=== PATIENT | male | born 1990 ===

== ENCOUNTER 2025-08-08 19:19 | Emergency (ER) | payer BC, SELFPAY ==
[2025-08-08] VITALS (17 sets, daily range): BP systolic 105–149; BP diastolic 68–91; PULSE 75; RESP 20; TEMP 36.5; O2SAT 97–100
--- NOTE | ~2025-08-08 | CT_ITS ---
CT brain wo con HISTORY:SINGLETARY x 1 week, no hx COMPARISON: None. TECHNIQUE: Axial images were obtained of the head without intravenous contrast. FINDINGS: No acute intracranial hemorrhage, mass effect or midline shift. No extra-axial fluid collections. The calvarium is intact. Mucosal thickening of the maxillary sinuses bilaterally. Remaining visualized paranasal sinuses and mastoid air cells are clear. IMPRESSION: No acute intracranial hemorrhage or extra axial fluid collections. All CT scans at this facility are performed using low dose modulation techniques as appropriate to perform exam including the following: automated exposure control; use of iterative reconstruction technique; adjustment of the mA and/or kV according to patient size (this includes techniques or standardized protocols for targeted exams where dose is matched to indication/reason for exam). Reviewed, dictated and finalized at location S. IMPRESSION: No acute intracranial hemorrhage or extra axial fluid collections. All CT scans at this facility are performed using low dose modulation techniqu es as appropriate to perform exam including the following: automated exposure c ontrol; use of iterative reconstruction technique; adjustment of the mA and/or kV according to patient size (this includes techniques or standardized protocol s for targeted exams where dose is matched to indication/reason for exam).
--- NOTE | 2025-08-08 21:48 | ED_ITS ---
HPI - Headache General Chief Complaint: Headache Stated Complaint: SINGLETARY/dizzy Time Seen by Provider: 08/08/25 21:42 History of Present Illness HPI Narrative: 35-year-old male with no pertinent past medical history presenting to the emergency department with 1 week of headache with posterior head pressure as well as left-sided throbbing discomfort. Associated dizziness he describes as almost passing out and having a nosebleed today. No history of migraines. No traumatic injuries. No fever, chills or neck pain/stiffness. Was otherwise in his normal state of health. Has tried some Advil home without any relief. No sinus pressure congestion. No sick contacts, vision changes, neuropathy, weakness or neurological deficits or complaints. Related Data Allergies Allergy/AdvReac Type Severity Reaction Status Date / Time No Known Allergies Allergy Verified 08/08/25 19:21 Review of Systems 2 Review of Systems: As reviewed above in HPI Exam 2 Narrative: GENERAL: [Well-appearing, well-nourished, and in no acute distress.] HEAD: [Normocephalic, atraumatic.] EYES: [PERRLA and EOMI.] ENT: Nares clear, no rhinorrhea or epistaxis. Mucous membranes moist. NECK: Supple. CHEST: [Clear to auscultation. No respiratory distress.] HEART: [Regular rate and rhythm]. No murmur heard. [Normal peripheral pulses.] ABDOMEN: [Soft, nondistended], [nontender], [No rigidity or guarding] EXTREMITIES: Normal range of motion. [No edema.] SKIN: Warm, dry, no rash. NEURO: [No focal deficits]. Alert and oriented [x3.] PSYCH: [Normal mood and affect.] Course Vital Signs Vital signs: Vital Signs Temperature 36.5 C 08/08/25 19:20 Pulse Rate 75 08/08/25 19:20 Respiratory Rate 20 08/08/25 19:20 Blood Pressure 149/79 H 08/08/25 19:20 Pulse Oximetry 100 08/08/25 19:20 Oxygen Delivery Room Air 08/08/25 19:20 Temperature 36.5 C 08/08/25 19:20 Pulse Rate 75 08/08/25 19:20 Respiratory Rate 20 08/08/25 19:20 Blood Pressure 105/68 08/08/25 23:45 Pulse Oximetry 98 08/08/25 23:46 Oxygen Delivery Room Air 08/08/25 19:20 MDM - Headache MDM Narrative Medical decision making narrative: 35-year-old male with no pertinent past medical history presenting to the emergency department with 1 week of headache with posterior head pressure as well as left-sided throbbing discomfort. Associated dizziness he describes as almost passing out and having a nosebleed today. No history of migraines. No traumatic injuries. No fever, chills or neck pain/stiffness. Was otherwise in his normal state of health. Has tried some Advil home without any relief. No sinus pressure congestion. No sick contacts, vision changes, neuropathy, weakness or neurological deficits or complaints. Patient has a benign physical examination but complaining of persistent headache for over a week with unilateral left-sided throbbing discomfort in posterior head pressure. Likely tension headache versus migraine headache versus less likely sinus congestion headache. Low likelihood intracranial process such as subarachnoid hemorrhage but persistent for over week. He did have a nose bleed which has stopped no evidence of epistaxis on examination. Blood pressure mildly elevated but not severe range. Normal vital signs otherwise. Will treat him for headache with a combination of Compazine, Toradol, diphenhydramine and fluids and basic laboratory studies and a CT obtained. CT scan unremarkable normal laboratory studies. Patient's vitals are stable. His headache resolved after interventions upon reassessment. Safe for discharge home at this time with PCP follow-up instructions. Medical Records Attestation: I reviewed the patient's medical records. Lab Data Attestation: I reviewed the patient's lab results. 08/08/25 22:07 08/08/25 22:07 Labs: Lab Results 08/08/25 Range/Units 22:07 WBC 7.3 (4.5-10.0) K/mm3 RBC 5.29 (4.6-6.20) M/mm3 Hgb 16.4 (14.0-18.0) g/dL Hct 47.8 (42.0-52.0) % MCV 90.4 (80-100) fl MCH 31.0 (26-34) pg MCHC 34.3 (32-36) g/dl RDW 13.0 (11.5-14.5) % Plt Count 205 (150-375) k/mm3 MPV 10.3 (7.4-10.4) fl Immature Gran % (Auto) 0.1 (0-0.5) % Neut % (Auto) 47.6 (45.5-73.1) % Lymph % (Auto) 36.2 (18.3-44.2) % Sabine % (Auto) 11.1 H (2.6-8.5) % Eos % (Auto) 4.3 (0-4.4) % Baso % (Auto) 0.7 (0.2-1.2) % Lymph # (Auto) 2.63 (0.9-3.2) K/mm3 Sabine # (Auto) 0.8 H (0.1-0.6) K/mm3 Eos # (Auto) 0.3 (0-0.3) K/mm3 Baso # (Auto) 0.1 (0.0-0.1) K/mm3 Abs Immat Gran (auto) 0.01 (0.00-0.031) K/mm3 Absolute Neuts (auto) 3.5 (1.3-6.7) K/mm3 Absolute Nucleated RBC 0.000 (0.0-0.012) K/mm3 Nucleated RBC % 0.0 (0.0-0.2) % Sodium 140 (137-145) mmol/L Potassium 4.0 (3.4-5.0) mmol/L Chloride 104 (98-107) mmol/L Carbon Dioxide 26 (22-30) mmol/L Anion Gap 10 (4-12) mmol/L BUN 19 (9-20) mg/dL Creatinine 1.09 (0.7-1.3) mg/dL Estim Creat Clear Calc 77 ml/min Estimated GFR > 60 (59 - ) Glucose 97 (65-110) mg/dL Calcium 9.4 (8.4-10.2) mg/dL Magnesium 2.1 (1.6-2.3) mg/dL Imaging Data Attestation: I personally reviewed and interpreted this imaging study as follows: My impression: Impressions Head CT 08/08/25 22:11 IMPRESSION: No acute intracranial hemorrhage or extra axial fluid collections. All CT scans at this facility are performed using low dose modulation techniques as appropriate to perform exam including the following: automated exposure control; use of iterative reconstruction technique; adjustment of the mA and/or kV according to patient size (this includes techniques or standardized protocols for targeted exams where dose is matched to indication/reason for exam). Discharge Plan Discharge Clinical Impression: Migraine, Headache Patient Disposition: Home Condition: Stable Instructions: Antibiotic Form, Migraine Headache (ED), Acute Headache (ED) Additional Instructions: Laboratory studies and imaging are reassuring and normal appearing. Your symptoms are consistent with a migraine headache. Follow-up with regular primary care provider. Take Tylenol and ibuprofen every 6-8 hours for pain control if it recurs. Return with any worsening or emergent symptoms/concerns. Patient Language: Danish Follow-up/Referrals: PHYSICIAN,SIGNAL WORKER [Primary Care Provider, Internal Medicine] Time of Disposition: 23:03
[2025-08-08] MEDS: SODIUM CHLORIDE 0.9% IV 1,000 ML 999 ML IV CONT (22:08)
[2025-08-08] MEDS: PROCHLORPERAZINE EDISYLATE 10 MG/2 ML VIAL IV PUSH (22:09)
[2025-08-08] MEDS: KETOROLAC 15 MG/ML VIAL (*BKC) IV PUSH (22:09)
[2025-08-08 22:13] LABS: Hematocrit 47.8 % (42.0-52.0); Hemoglobin 16.4 g/dL (14.0-18.0); Immature Granulocyte Percent A 0.1 % (0-0.5); Lymphocytes Absolute Auto 2.63 K/mm3 (0.9-3.2); Mean Corpuscular HGB Conc 34.3 g/dl (32-36); Mean Corpuscular Hemoglobin 31.0 pg (26-34); Mean Corpuscular Volume 90.4 fl (80-100); Nucleated Red Blood Cells Absolute Auto 0.000 K/mm3 (0.0-0.012); Nucleated Red Blood Cells Perc 0.0 % (0.0-0.2); Platelet Count Result 205 k/mm3 (150-375); Red Blood Count 5.29 M/mm3 (4.6-6.20); White Blood Count 7.3 K/mm3 (4.5-10.0)
[2025-08-08 22:24] LABS: Anion Gap 10 mmol/L (4-12); Blood Urea Nitrogen 19 mg/dL (9-20); Calcium 9.4 mg/dL (8.4-10.2); Carbon Dioxide 26 mmol/L (22-30); Chloride 104 mmol/L (98-107); Estimated CRCL calculation 77 ml/min; Estimated Glomerular Filt Rate > 60; Glucose 97 mg/dL (65-110); Magnesium 2.1 mg/dL (1.6-2.3); Potassium 4.0 mmol/L (3.4-5.0); Sodium 140 mmol/L (137-145)
== END 2025-08-09 | disposition home or self-care (01) ==
LOC: ANHED 23:12
PROVIDERS: Emergency Provider Student in an Organized Health Care Education/Training Program
DX: G43.909 Migraine, unspecified, not intractable, without status migrainosus (principal)
CPT/HCPCS: 36415; 70450; 80048; 83735; 85025; 96361; 96374; 96375; 99284; J0780; J1200; J1885; J7030